=== PATIENT | female | born 1960 ===

== ENCOUNTER 2022-12-15 14:48 | Outpatient (CLI) | payer BC, SELFPAY ==
--- NOTE | ~2022-12-15 | MR_ITS ---
MRI of the thoracic spine Clinical History: Spinal stenosis Technique: Axial T2-weighted and gradient images, and sagittal T1-weighted, T2-weighted, and STIR kiki ges were acquired. Findings: There is no fracture or subluxation of the thoracic spine. Vertebral bodies maintain normal height and alignment. Intraosseous hemangioma noted in the T8 vertebral body. No suspicious bone mar row signal abnormality seen. At T11-T12, facet joint hypertrophy results in mild canal stenosis and possible minimal cord compress ion. No other areas of spinal canal stenosis or cord compression seen in the remainder of the thoraci c spine. Minimal central disc protrusion noted at T1-T2. No abnormal signal seen in the spinal cord. Paravertebral soft tissues are unremarkable. Impression: Mild canal stenosis and minimal cord compression at T11-T12, predominantly related to facet joint/lig ament flavum hypertrophy at this level. Reviewed, dictated and finalized at [facility]. Impression: Mild canal stenosis and minimal cord compression at T11-T12, predominantly rela pratik to facet joint/ligament flavum hypertrophy at this level.
--- NOTE | ~2022-12-15 | MR_ITS ---
MRI of the lumbar spine Clinical History: Radiculopathy Technique: Axial T2-weighted images, and sagittal T1-weighted, T2-weighted, and T2 fat-sat images wer e acquired. Findings: There is no fracture or subluxation of lumbar spine. Vertebral bodies maintain normal heigh t and alignment. No suspicious bone marrow signal abnormality seen. At L1-L2, there is no disc bulge or herniation. There is moderate facet arthropathy. No definite aj l stenosis evident. Suspected mild right neural foraminal narrowing. Left neural foramen preserved. At L2-L3, there is mild disc bulge and moderate to advanced facet arthropathy. No central canal steno sis evident. There is mild to moderate bilateral neural foraminal narrowing. At L3-L4, there is mild disc bulge with moderate to advanced facet arthropathy. No rajani central aj l stenosis. Bilateral neural foramina are minimally narrowed. At L4-L5, there is minimal disc bulge with moderate to advanced facet arthropathy. No central canal s tenosis. There is moderate left neural foraminal narrowing, and mild to moderate right neural foramin al narrowing. At L5-S1, there is minimal disc bulge with moderate facet arthropathy. No central canal stenosis. The re is moderate to severe bilateral neural foraminal narrowing, right worse than left. Paravertebral soft tissues are unremarkable. Impression: Moderate degenerative spondylosis, as above, with multilevel neural foraminal narrowing. Reviewed, dictated and finalized at [facility]. Impression: Moderate degenerative spondylosis, as above, with multilevel neural foraminal n arrowing.
== END 2022-12-15 14:49 ==
LOC: MICIMG 14:53
DX: M48.04 Spinal stenosis, thoracic region (principal); M47.26 Other spondylosis with radiculopathy, lumbar region
CPT/HCPCS: 72146; 72148

== ENCOUNTER → 2022-12-22 10:38 | Outpatient (CLI) | payer BC, SELFPAY ==
--- NOTE | ~2022-12-22 | XR_ITS ---
AP and oblique views of the SI joints CLINICAL HISTORY: Pain FINDINGS: SI joints are unremarkable. Bilateral hip joints are unremarkable. No fracture or dislocati on. No degenerative, sclerotic, or erosive change seen. Soft tissues are unremarkable. IMPRESSION: Unremarkable exam. Reviewed, dictated and finalized at location . IMPRESSION: Unremarkable exam.
--- NOTE | ~2022-12-22 | XR_ITS ---
AP view of the pelvis and AP and lateral views of the right hip Clinical history: Pain Findings: No acute fracture or dislocation is seen. Osseous alignment is anatomic. Bilateral hip and SI joint spaces are preserved. Soft tissues are unremarkable. Impression: No significant abnormality is seen. Reviewed, dictated and finalized at location . Impression: No significant abnormality is seen.
== END ==
PROVIDERS: PCP Nurse Practitioner; Visit Provider Nurse Practitioner
DX: M25.551 Pain in right hip (principal); M53.88 Other specified dorsopathies, sacral and sacrococcygeal region
CPT/HCPCS: 72202; 73502

== ENCOUNTER → 2023-05-19 11:11 | Outpatient (CLI) | payer BC, SELFPAY ==
--- NOTE | ~2023-05-19 | US_ITS ---
EXAMINATION: US retroperitoneal comp DATE: 05/19/2023 11:33 INDICATION: Stage III chronic kidney disease TECHNIQUE: Multiple ultrasound grayscale images of the kidneys were obtained. COMPARISON: None. FINDINGS: The right kidney measures 9.8 x 5.1 x 4.7 cm. The left kidney measures 10.9 x 4.9 x 4.9 cm. The kidne ys demonstrate normal echogenicity. 8 mm anechoic left renal cyst. There is no hydronephrosis in eith er kidney. No shadowing renal stones identified. Wall echo-shadow complex at the gallbladder fossa c onsistent with a gallstone filled gallbladder. The bladder is normal. IMPRESSION: 1. 8 mm left renal cyst. Otherwise normal kidneys without hydronephrosis. 2. Gallstone filled gallbladder. Reviewed, dictated and finalized at location [facility]
== END ==
PROVIDERS: PCP Specialist; Visit Provider Specialist
DX: N18.30 Chronic kidney disease, stage 3 unspecified (principal); N28.1 Cyst of kidney, acquired; K80.20 Calculus of gallbladder without cholecystitis without obstruction
CPT/HCPCS: 76770